=== PATIENT | female | born 1965 | race Caucasian/White ===

== ENCOUNTER 2020-07-29 13:04 | Outpatient (REF) | payer OTHER, SELFPAY ==
[2020-07-29 14:45] LABS: Anion Gap 13 (12-20); Blood Urea Nitrogen 16 mg/dL (9-16); Carbon Dioxide 28 mmol/L (22-29); Chloride 102 mmol/L (96-108); Estimated Glomerular Filt Rate > 60; Glucose Random 95 mg/dL (60-115); Potassium 4.6 mmol/l (3.3-5.1); Rheumatoid Factor < 15.0 IU/mL (<15.0); Sodium 138 mmol/L (135-145)
[2020-07-29 15:06] LABS: Ferritin 32 ng/mL (10-250); Thyroid Stimulating Hormone 0.39 uIU/mL (0.32-4.0)
[2020-07-29 15:09] LABS: Erythrocyte Sedimentation Rate 5 MM/HR (0-20)
[2020-07-29 15:11] LABS: Syphilis Screen Nonreactive (Nonreactive)
[2020-07-30 08:56] LABS: Lyme Abs Screen <0.90 index
[2020-07-30 14:31] LABS: Anti Nuclear Antibody Screen NEGATIVE (NEGATIVE)
== END 2020-07-29 13:05 | disposition home or self-care (01) ==
LOC: HO.LAB 13:04
PROVIDERS: PCP Internal Medicine; Visit Provider Psychiatry & Neurology Neurology
DX: G25.81 Restless legs syndrome (principal); M79.7 Fibromyalgia
CPT/HCPCS: 36415; 80048; 82550; 82728; 84443; 85652; 86038; 86039; 86431; 86618; 86780

== ENCOUNTER 2020-09-09 17:13 | Outpatient (REF) | payer OTHER, SELFPAY | END 2020-09-09 17:14 | disposition home or self-care (01) | LOC: HO.LAB 17:13 | PROVIDERS: Visit Provider Internal Medicine | DX: Z20.828 Contact with and (suspected) exposure to other viral communicable diseases (principal) | CPT/HCPCS: C9803; U0003 ==